=== PATIENT | male | born 1960 | race Caucasian/White ===

== ENCOUNTER → 2022-05-14 | Day surgery (SDC) | payer MEDICARE ==
[~2022-05-14] VITALS: Ht 185 cm; Wt 129.0 kg
[2022-05-14 11:15] LABS: HCT 29.7 % (42.0-52.0); HGB 8.8 g/dl (13.2-18.0); MCH 23.1 pg (25.0-31.0); MCHC 29.6 g/dL (32.0-36.0); MPV 10.7 fL (6.0-9.5); RBC 3.81 M/uL (4.70-6.00); RDW 19.6 % (11.5-14.0); WBC 6.5 K/uL (4.0-10.5)
[2022-05-14 11:24] LABS: ALBUMIN 3.7 g/dL (3.4-5.0); BILIRUBIN - TOTAL 0.7 mg/dL (0.2-1.0); GLOBULIN (CALCULATION) 4.2 g/dL; POTASSIUM 3.6 mmol/L (3.5-5.1); TOTAL PROTEIN 7.9 g/dL (6.4-8.2)
== END | disposition home or self-care (01) ==
LOC: FAS 09:57
PROVIDERS: Surgery
DX: K57.30 Diverticulosis of large intestine without perforation or abscess without bleeding (principal); D13.1 Benign neoplasm of stomach; D50.0 Iron deficiency anemia secondary to blood loss (chronic); K29.70 Gastritis, unspecified, without bleeding; K56.609 Unspecified intestinal obstruction, unspecified as to partial versus complete obstruction; K31.9 Disease of stomach and duodenum, unspecified; I10 Essential (primary) hypertension; E78.00 Pure hypercholesterolemia, unspecified; G47.33 Obstructive sleep apnea (adult) (pediatric); K21.9 Gastro-esophageal reflux disease without esophagitis; E11.9 Type 2 diabetes mellitus without complications; F41.9 Anxiety disorder, unspecified; Z95.1 Presence of aortocoronary bypass graft; Z88.0 Allergy status to penicillin; Z79.84 Long term (current) use of oral hypoglycemic drugs; Z79.899 Other long term (current) drug therapy
CPT/HCPCS: 36415; 80053; J1610; J7120